=== PATIENT | male | born 1990 | race Two or more races ===

== ENCOUNTER 2016-12-17 11:20 | Emergency (ER) | payer OTHER ==
[2016-12-17] MEDS ORDERED: PROPARACAINE HCL 0.5% 300 GTTS/BOT SOLN.DROP ONE (12:06)
[2016-12-17] MEDS ORDERED: IBUPROFEN 600 MG TABLET ONE (12:22)
== END 2016-12-17 12:46 | disposition home or self-care (01) ==
LOC: ED 11:20
DX: H16.002 Unspecified corneal ulcer, left eye (principal); F17.210 Nicotine dependence, cigarettes, uncomplicated
CPT/HCPCS: 99282; 99283; A9270 ×2